=== PATIENT | female | born 1945 | race Asian ===

== ENCOUNTER 2017-12-17 12:51 | Emergency (ER) | payer MEDICARE, MEDICAID ==
[~2017-12-17] VITALS: Ht 154.9 cm; Wt 65.0 kg
[~2017-12-17 12:51] MED LIST: ALBU8.5H5 INH; ASPI-496 PO; ASPI325T80 PO; ATOR40TA PO; CARV6.2512 PO; LORA10CA PO; METF10002 PO; SIMV5TAB5 PO; TICA90TA PO
[2017-12-17] MEDS ORDERED: INSULIN (13:05)
[2017-12-17 14:00] LABS: MICROSCOPIC INDICATED
[2017-12-17 14:18] LABS: BASOPHILS # (AUTO) 0.08 x10^3/uL (0-0.1); BASOPHILS % (AUTO) 1 % (0-1); EOSINOPHILS # (AUTO) 0.06 x10^3/uL (0-0.4); EOSINOPHILS % (AUTO) 1 % (1-7); LYMPHOCYTES # (AUTO) 1.49 x10^3/uL (1-3.4); LYMPHOCYTES % (AUTO) 20 % (22-44); MD NO; MEAN CORPUSCULAR HEMOGLOBIN 31.4 pg (27.0-34.8); MEAN CORPUSCULAR HGB CONC 34.1 g/dL (32.4-35.8); MEAN PLATELET VOLUME 8.2 fL (7.4-10.4); MONOCYTES # (AUTO) 0.74 x10^3/uL (0.2-0.8); MONOCYTES % (AUTO) 10 % (2-9); NEUTROPHILS # (AUTO) 5.06 x10^3/uL (1.8-6.8); NEUTROPHILS % (AUTO) 68 % (42-75); PLATELET COUNT 300 x10^3/uL (130-400)
[2017-12-17 14:20] LABS: CULTURE INDICATED? NO
[2017-12-17 14:27] LABS: PROTHROMBIN TIME 10.4 Seconds (9.6-11.5)
[2017-12-17 14:30] LABS: ALBUMIN 3.2 g/dL (3.4-5.0); ANION GAP 10 mmol/L (5-15); CHLORIDE 107 mmol/L (98-107)
[2017-12-17 14:34] LABS: ALANINE AMINOTRANSFERASE 14 U/L (12-78); ALKALINE PHOSPHATASE 84 U/L (45-117); BILIRUBIN,TOTAL 0.4 mg/dL (0.2-1.0); TOTAL PROTEIN 7.8 g/dL (6.4-8.2)
[2017-12-17 14:50] LABS: ACETONE, SERUM Negative (Negative)
[2017-12-17 15:45] VITALS: BP 98/80
== END 2017-12-17 15:57 | disposition home or self-care (01) ==
LOC: ED 15:03
DX: S39.012A Strain of muscle, fascia and tendon of lower back, initial encounter (principal); R41.82 Altered mental status, unspecified; E11.9 Type 2 diabetes mellitus without complications; I25.10 Atherosclerotic heart disease of native coronary artery without angina pectoris; F41.1 Generalized anxiety disorder; I10 Essential (primary) hypertension; E78.5 Hyperlipidemia, unspecified; Z90.710 Acquired absence of both cervix and uterus; Z87.891 Personal history of nicotine dependence; X58.XXXA Exposure to other specified factors, initial encounter; Y93.89 Activity, other specified; Y92.89 Other specified places as the place of occurrence of the external cause; Y99.8 Other external cause status
CPT/HCPCS: 36415; 70450; 71045; 80053; 81001; 82010; 82140; 83605; 83690; 85025; 85610; 93005; 99285

== ENCOUNTER 2020-01-25 14:55 | Emergency (ER) | payer MEDICARE, MEDICAID ==
[~2020-01-25] VITALS: Ht 154.9 cm; Wt 59.0 kg
[~2020-01-25 14:55] MED LIST changes: +ACET325T26 PO; +AMIO200T42 PO; +ASPI-515 PO; +ATOR-2 PO; +CLOP75TA PO; +ENOX30DI3 SQ; +ERGO500017 PO; +FLUO20CA23 PO; +GABA300C10 PO; +GLIP5TAB10 PO; +INSU100I11 SQ-INSULIN; +INSULIN; +LISI-167 PO; +LORA10TA62 PO; +MECL-76 PO; +METF1000 PO; +MONT10TA11 PO; +NITR0.4T41 SL; +SIMV5TAB14 PO; -SIMV5TAB5 PO; +TRAM50TA2 NG
[2020-01-25 16:14] VITALS: BP 198/103
--- NOTE | 2020-01-25 16:20 | NUR ---
PT TO BE DC. NOTIFIED OF PT BP. PT INSTRUCTED TO GO HOME AND TAKE HER BP MEDS.
== END 2020-01-25 16:44 | disposition home or self-care (01) ==
LOC: ED 16:00
DX: J45.901 Unspecified asthma with (acute) exacerbation (principal); Z20.828 Contact with and (suspected) exposure to other viral communicable diseases; I10 Essential (primary) hypertension; E11.9 Type 2 diabetes mellitus without complications; I25.10 Atherosclerotic heart disease of native coronary artery without angina pectoris
CPT/HCPCS: 36415; 71045; 87635; 99284